=== PATIENT | female | born 1965 | race Caucasian/White ===

== ENCOUNTER 2017-04-24 20:16 | Inpatient (IN) | payer BC ==
[~2017-04-24] VITALS: Ht 172.7 cm; Wt 74.8 kg
--- NOTE | 2017-04-24 21:06 | NUR ---
Pt SPO2 = 85%, placed pt on 2lpm O2 via NC.
[2017-04-24] MEDS ORDERED: IV NORMAL SALINE 1000 ML BAG IV ONE (21:45)
[2017-04-24 21:50] LABS: EOSINOPHILS # (AUTO) 0.1 K/uL (0.0-0.7); HEMOGLOBIN 8.6 g/dL (10.9-14.3); MONOCYTES # (AUTO) 0.4 K/uL (2.0-10.0); WHITE BLOOD COUNT (AUTO) 8.4 K/uL (3.8-11.8)
[2017-04-24 21:54] LABS: BASOPHILS % (AUTO) 0.6 % (0.0-2.0); EOSINOPHILS % (AUTO) 1.5 % (0.0-7.0); HEMATOCRIT 26.4 % (31.2-41.9); LYMPHOCYTES # (AUTO) 1.4 K/uL (20.0-40.0); LYMPHOCYTES % (AUTO) 17.2 % (20.5-51.5); MEAN CORPUSCULAR HEMOGLOBIN 28.1 uug (24.7-32.8); MEAN CORPUSCULAR HGB CONC 33 g/dL (32.3-35.6); MEAN CORPUSCULAR VOLUME 86.4 fL (75.5-95.3); MONOCYTES % (AUTO) 4.7 % (0.0-11.0); NEUTROPHILS # (AUTO) 6.4 K/uL (1.8-8.9); PLATELET COUNT (AUTO) 390 K/uL (179-408); RED BLOOD CELL COUNT(AUTO) 3.05 MIL/uL (3.63-4.92)
[2017-04-24 21:58] LABS: POTASSIUM 4.3 mmol/L (3.5-5.1)
--- NOTE | 2017-04-24 22:04 | NUR ---
Pt had chemotherapy yesterday, today, pt had syncope and confusion/delerium afterwards. Pt appears lethargic, but is oriented x 4. Pt denies CP, SOB, dizziness, n/v, no other complaints, no distress noted.
[2017-04-24 22:11] LABS: BILIRUBIN,DIRECT 0.1 mg/dL (0.0-0.2); BILIRUBIN,TOTAL 0.3 mg/dL (0.2-1.0); TOTAL PROTEIN, SERUM 7.9 g/dL (6.4-8.2)
[2017-04-24 22:14] LABS: MAGNESIUM 1.8 mg/dL (1.8-2.4)
[2017-04-24 22:27] LABS: THYROID STIMULATING HORMONE 0.935 mIU/mL (0.358-3.740)
[2017-04-24] MEDS ORDERED: LEVOFLOXACIN 750 MG/D5W 150 ML PIGGYBACK IV ONE (23:30)
--- NOTE | 2017-04-25 00:05 | NUR ---
Assisted Pt to bathroom to obtain urine sample, took sample to lab.
[2017-04-25 00:14] LABS: *BILIRUBIN,URIN NEGATIVE (NEGATIVE); *BLOOD, URINE NEGATIVE (NEGATIVE); *CLARITY,URINE CLEAR (CLEAR); *COLOR,URINE YELLOW (YELLOW); *KETONES,URINE NEGATIVE (NEGATIVE); *PROTEIN,URINE TRACE (NEGATIVE); LEUKOCYTE ESTERASE ,URINE NEGATIVE (NEGATIVE); NITRITE, URINE NEGATIVE (NEGATIVE); UGLUCOSE NEGATIVE (NEGATIVE)
[2017-04-25 00:22] LABS: BACTERIA,URINE NONE SEEN /HPF (NONE SEEN); RBC,URINE NONE SEEN /HPF (0-3); SQUAMOUS EPITHELIAL CELL,UR FEW /HPF (NONE SEEN); WBC,URINE 0-3 /HPF (0-3)
--- NOTE | 2017-04-25 00:37 | NUR ---
Pt was hard IV stick. Had to wait for 3rd nurse to try. Got 22 Left AC
[2017-04-25] MEDS ORDERED: LEVOFLOXACIN 750MG/D5W 150 ML IV ONE (00:46)
[2017-04-25] MEDS ORDERED: IV NS 1000 ML 1,000 ML IV PRN (01:02)
--- NOTE | 2017-04-25 01:06 | NUR ---
Gave report to DOMINGA Tuttle.
[2017-04-25] MEDS ORDERED: Z GUARD REMEDY PASTE 57 GM TUBE TOP PRN (01:15)
[2017-04-25] MEDS ORDERED: MAGNESIUM HYDROXIDE 30 ML LIQUID UDC PO PRN (01:15)
[2017-04-25] MEDS ORDERED: HYDROCODONE/APAP 5-325MG TABLET PO PRN (01:15)
[2017-04-25] MEDS ORDERED: ACETAMINOPHEN 325 MG TABLET PO PRN (01:15)
--- NOTE | 2017-04-25 01:30 | NUR ---
PT RECEIVED FROM ED, VIA [employer] FRIEND AT BEDSIDE. ORIENTED TO ROOM. A/OX4. ABLE TO MAKE NEEDS KNOWN. V/S STABLE. IN NO ACUTE DISTRESS. NO C/O PAIN AT THIS TIME. IV INTACT AND PATENT, PT CONT LEVAQUIN INFUSION FROM ED AT THIS TIME. ON 2LNC, TOLERATING WELL. PT SEEN WITH LOW GRADE FEVER OF 99.3F. TYLENOL PROVIDED ORDERED. PT HAS PAIN PUMP ATTACHED TO LEFT CHEST WALL, SETTINGS UNKNOWN. HOB ELEVATED. SAFETY MEASURES IMPLEMENTED. CALL LIGHT WITHIN REACH.
[2017-04-25 02:00] VITALS: BP 103/54
[2017-04-25] MEDS: ONDANSETRON 4 MG/2 ML VIAL IV PRN ×2 (02:11→14:55)
[2017-04-25 04:00] VITALS: BP 109/63
--- NOTE | 2017-04-25 05:44 | NUR ---
PT SLEPT INTERMITTENTLY THROUGHOUT SHIFT. IN STABLE CONDITION. IVF INFUSING. IV ABX INFUSED. ON 2LNC TOLERATING WELL. CONT TO HAVE LOW GRADE FEVER, COOLING MEASURES INITIATED. SINUS RHYTHM AT ON THE TELE MONITOR. CONT TO HAVE PAIN PUMP AT BEDSIDE. HOB ELEVATED. ALL NEEDS ATTENDED. SAFETY MAINTAINED. CALL LIGHT WITHIN REACH. Addendum: 04/25/17 at 0600 by MART ZAZUETA RN 95 BPM ON THE TELE MONITOR.
--- NOTE | 2017-04-25 09:00 | NUR ---
PATIENT RESTING COMFORTABLY IN BED AT THIS TIME. RECEIVED SHIFT REPORT FROM INFRASTRUCTURE ANALYST NURSE. STABLE CONDITION, NO S/S OF DISTRESS, VITALS STABLE. CAAD PUMP CONNECTED TO PATIENT. GAIT VERY UNSTEADY. BILATERAL LOWER EXTREMITIES ARE WEAK. AMBULATES WITH WALKER. IV SITE INTACT. BED IN LOCKED/LOW POSITION, SIDE RAILS UP X2, CALL LIGHT WITHIN REACH, BED ALARM ON. SAFETY/ COMFORT WILL BE PROVIDED.
--- NOTE | 2017-04-25 10:00 | NUR ---
WITNESSED MEDICATIONS THAT PATIENT PULLED OUT OF HER BACKPACK AT BEDSIDE. INFORMED PATIENT THAT SHE CANNOT HAVE HER OWN MEDICATIONS AT BEDSIDE AND EXPLAINED THE RISKS TO PATIENT. PATIENT REFUSED TO GIVE MEDICATIONS UP. VERBALZIED: "IM NOT GIVING THEM UP." ASKED PATIENT IF THERE IS SOMEONE WHO CAN [employer] PLATER THE MEDICATIONS AND PATIENT SAID HER FRIEND CAN PICK THEM UP. ASKED PATIENT IF THERE IS A LIST OF MEDICATIONS HER FRIEND CAN BRING THAT LIST THE CURRENT MEDICATIONS SHE IS ON AND PATIENT SAID HE COULD. LIST OF MEDICATIONS BROUGHT IN BY PATIENT. PATIENT'S OWN MEDICATIONS GIVEN TO FRIEND TO BRING BACK HOME. MEDICATIONS ADDED INTO CHART FOR MD TO RECONCILE. FAXED LIST OF MEDICATIONS TO PHARMACY.
[2017-04-25 11:45] VITALS: BP 103/51
[2017-04-25] MEDS ORDERED: HYDROMORPHONE 1 MG/1 ML DISP.SYRIN IV PRN (13:00)
[2017-04-25] MEDS ORDERED: HYDROMORPHONE 2 MG/1 ML DISP.SYRIN IV ONE (13:30)
[2017-04-25] MEDS ORDERED: BACL20TA PO (15:45)
[2017-04-25 15:46] VITALS: BP 112/59
[2017-04-25] MEDS ORDERED: DIAZ5TAB4 PO (15:47)
[2017-04-25] MEDS ORDERED: DULO60CA45 PO (15:48)
[2017-04-25] MEDS ORDERED: EXEM25TA5 PO (15:49)
[2017-04-25] MEDS ORDERED: FURO40TA5 PO (15:49)
[2017-04-25] MEDS ORDERED: GABA-534 PO (15:51)
[2017-04-25] MEDS ORDERED: METO5TAB7 PO (15:54)
[2017-04-25] MEDS ORDERED: MODA200T44 PO (15:55)
[2017-04-25] MEDS ORDERED: POTA10TA17 PO (15:56)
[2017-04-25] MEDS ORDERED: SENN-175 PO (16:00)
[2017-04-25] MEDS ORDERED: SPIR100T3 PO (16:01)
[2017-04-25] MEDS ORDERED: TRAZ-144 PO (16:03)
[2017-04-25] MEDS ORDERED: HYDR-3980 PO (16:06)
[2017-04-25 19:00] VITALS: BP 115/53
--- NOTE | 2017-04-25 19:32 | NUR ---
PATIENT RESTING COMFORTABLY AT THIS TIME. NO S/S OF DISTRESS. STABLE CONDITION. VITAL SIGNS STABLE.
--- NOTE | 2017-04-25 20:00 | NUR ---
RECEIVED PATIENT AWAKE IN BED WITH VISITOR AT BEDSIDE. PATIENT IS A/O X3. C/O GENERALIZED PAIN. PATIENT HAS OWN PAIN PUMP NOTED, DISPENSING MEDICATION FOR PAIN RELIEF, MD AWARE. VS WNL. NO RESP. DISTRESS NOTED. CALL LIGHT IN REACH. ALL NEEDS ATTENDED. WILL CONTINUE TO MONITOR.
--- NOTE | 2017-04-25 20:30 | NUR ---
PATIENTS IV SITE, INFILTRATED. REMOVED. PATIENT IS REFUSING FOR HEPLOCK TO BE RE-INSERTED. CALLED OUT TO DR. ESPINO, FOR FURTHER ORDERS. ALL NEEDS ATTENDED.
--- NOTE | 2017-04-25 20:40 | NUR ---
RECEIVED ORDER TO D/C IVF AND CHANGE LEVAQUIN TO PO. NO HEPLOCK NOTED AT THIS TIME. ALL NEEDS ATTENDED.
[2017-04-25] MEDS ORDERED: LEVOFLOXACIN 750 MG TABLET PO SCH (21:00)
[2017-04-25] MEDS ORDERED: LEVOFLOXACIN 750MG/D5W 750 MG in PREMIXED 1 EACH IV SCH (21:00)
[2017-04-26] MEDS ORDERED: LEVOFLOXACIN 750MG/D5W 750 MG in PREMIXED 1 EACH IV SCH ×2
[2017-04-26 04:00] VITALS: BP 119/58
--- NOTE | 2017-04-26 06:43 | NUR ---
PATIENT AWAKE IN BED. REFUSING TO WEAR CONTINUOS PULSE OX. VSS. SLEPT AT INTERVALS. CALL LIGHT IN REACH. ALL NEEDS ATTENDED. WILL CONTINUE TO MONITOR.
[2017-04-26] MEDS ORDERED: PANTOPRAZOLE SODIUM 40 MG TABLET.DR PO SCH (07:00)
--- NOTE | 2017-04-26 08:00 | NUR ---
Received patient in bed. AAO x4. No s/s acute distress. No SOB noted. Planning to be discharged home.
[2017-04-26] MEDS: BACLOFEN 20 MG TABLET PO SCH ×2 (08:31→12:38)
[2017-04-26] MEDS ORDERED: POTASSIUM CHLORIDE 20 MEQ TAB.PRT.SR PO SCH (09:00)
[2017-04-26] MEDS ORDERED: SENNOSIDES 1 TABLET PO SCH (09:00)
[2017-04-26] MEDS ORDERED: FUROSEMIDE 40 MG TABLET PO SCH (09:00)
[2017-04-26] MEDS ORDERED: POTASSIUM CHLORIDE 40 MEQ PO SCH (09:00)
[2017-04-26] MEDS ORDERED: SPIRONOLACTONE 25 MG TABLET PO SCH (09:00)
[2017-04-26] MEDS ORDERED: LEVO750T21 PO (11:49)
[2017-04-26] MEDS ORDERED: ONDA4TAB5 PO (11:49)
[2017-04-26 11:59] VITALS: BP 114/57
--- NOTE | 2017-04-26 15:00 | NUR ---
Patient discharged home with family member via wheelchair. Education addressed and provided. No s/s of distress. No SOB noted. Patient in a stable condition.
--- NOTE | 2017-04-26 17:12 | NUR ---
Resident just discharged home via car with caregiver. No s/s acute distress.
== END 2017-04-26 17:10 | disposition home or self-care (01) | DRG 871 ==
LOC: ER 20:16 → TELE 04-25 01:00 → MED 04-25 18:45
PROVIDERS: ADMIT Internal Medicine; ATTEND Internal Medicine
DX: A41.9 Sepsis, unspecified organism (principal); I50.23 Acute on chronic systolic (congestive) heart failure; G93.41 Metabolic encephalopathy; J18.9 Pneumonia, unspecified organism; C79.51 Secondary malignant neoplasm of bone; C50.911 Malignant neoplasm of unspecified site of right female breast; M41.9 Scoliosis, unspecified; E87.1 Hypo-osmolality and hyponatremia; Z90.13 Acquired absence of bilateral breasts and nipples; Z92.21 Personal history of antineoplastic chemotherapy; Z96.653 Presence of artificial knee joint, bilateral; Z85.71 Personal history of Hodgkin lymphoma; G89.29 Other chronic pain; D63.8 Anemia in other chronic diseases classified elsewhere; R09.02 Hypoxemia; I70.0 Atherosclerosis of aorta
CPT/HCPCS: 36415; 70030-TC; 70450; 71045; 83605; 83735; 84443; 85025; 85730; 86850; 86900; 86901; 87040; 87086; 87400; 93005; A4663; J1170; J1956; J2405; J7030